=== PATIENT | female | born 1970 | race Caucasian/White ===

== ENCOUNTER 2020-09-23 15:45 | Emergency (ER) | payer OTHER ==
[2020-09-23 15:52] VITALS: BP 129/83; PULSE 74; TEMP 98.8; BMI 25.8
== END 2020-09-23 16:50 | disposition home or self-care (01) ==
LOC: FER 15:45
DX: S93.401A Sprain of unspecified ligament of right ankle, initial encounter (principal)
CPT/HCPCS: 73610-TC-RT-FY; 73630-TC-RT-FY; 99284-25

== ENCOUNTER 2023-09-16 08:37 | Day surgery (SDC) | payer OTHER ==
[2023-09-08 17:00] VITALS: BMI 22.0
[2023-09-16] MEDS ORDERED: DEXAMETHASONE SOD PHOSPHATE/PF 10 MG/ML SDV ONE (09:36)
[2023-09-16] MEDS ORDERED: MIDAZOLAM HCL 2 MG/2 ML SINGLE DOSE VIAL ONE (09:36)
[2023-09-16] MEDS ORDERED: ROPIVACAINE HCL 0.5% 30ML VIAL ONE (09:37)
[2023-09-16] MEDS ORDERED: BUPIVACAINE HCL/PF 2.5 MG/ML - 30 ML VIAL IJ ONE (09:37)
[2023-09-16] MEDS ORDERED: GUM MASTIC/STORAX/MSAL/ALCOHOL 1 DRP DROPSBTL MC ONE (09:43)
[2023-09-16] MEDS ORDERED: FENTANYL CITRATE/PF 50 MCG/ML VIAL ONE (10:02)
[2023-09-16] MEDS ORDERED: ONDANSETRON 4 MG/2 ML VIAL IVPUSH PRN (11:44)
[2023-09-16] MEDS ORDERED: oxyCODONE HCL 5 MG TABLET PO PRN (11:44)
[2023-09-16] MEDS ORDERED: LACTATED RINGERS SOLUTION 1,000 ML IV SCH (11:45)
[2023-09-16 12:59] VITALS: RESP 18; TEMP 98
[2023-09-16 13:46] VITALS: BP 114/74; PULSE 76
== END 2023-09-16 14:10 | disposition home or self-care (01) ==
LOC: FASU 08:37
PROVIDERS: ATTEND Orthopaedic Surgery Hand Surgery
PROC: 0RRS07Z Replacement of Right Carpometacarpal Joint with Autologous Tissue Substitute, Open Approach (ICD-10-PCS; principal; 2023-09-16 10:39)
DX: M18.11 Unilateral primary osteoarthritis of first carpometacarpal joint, right hand (principal)
CPT/HCPCS: 94760; C1713